=== PATIENT | male | born 1990 | race African-American/Black ===

== ENCOUNTER 2018-12-20 17:06 | Emergency (ER) | payer SELFPAY, OTHER | END 2018-12-20 17:39 | disposition home or self-care (01) | LOC: E/R 17:39 | DX: S50.861A Insect bite (nonvenomous) of right forearm, initial encounter (principal); W57.XXXA Bitten or stung by nonvenomous insect and other nonvenomous arthropods, initial encounter; Y92.9 Unspecified place or not applicable | CPT/HCPCS: 99282 ==